=== PATIENT | male | born 1965 | race African-American/Black ===

== ENCOUNTER 2025-08-01 16:23 | Emergency (ER) | payer MEDICAID ==
[~2025-08-01] VITALS: Ht 177.8 cm; Wt 82.0 kg
[2025-08-01 16:42] VITALS: O2SAT 99
[2025-08-01] MEDS ORDERED: ACET-2708 MT (19:12)
[2025-08-01 19:45] VITALS: TEMP 36.9; O2SAT 100
[2025-08-01] MEDS: KETOROLAC 30MG/ML VIAL IM ONE (19:46)
[2025-08-01 19:48] VITALS: BP 146/87; PULSE 102; RESP 18
== END 2025-08-01 19:50 | disposition home or self-care (01) ==
LOC: ER 16:47
DX: M79.674 Pain in right toe(s) (principal); I10 Essential (primary) hypertension
CPT/HCPCS: 99283; 73660; 96372; J1885